=== PATIENT | male | born 1965 | race Native Hawaiian/Other Pacific Islander ===

== ENCOUNTER 2021-07-23 13:51 | Outpatient (CLI) | payer OTHER | END 2021-07-23 21:57 | disposition home or self-care (01) | LOC: MRI 13:51 | PROVIDERS: ATTEND Neurological Surgery | DX: M54.12 Radiculopathy, cervical region (principal) ==

== ENCOUNTER 2023-07-10 09:53 | Outpatient (CLI) | payer OTHER | END 2023-07-10 18:59 | disposition home or self-care (01) | LOC: RAD 09:53 | PROVIDERS: ATTEND Nurse Practitioner Family | DX: G56.03 Carpal tunnel syndrome, bilateral upper limbs (principal); M15.0 Primary generalized (osteo)arthritis; M54.2 Cervicalgia ==